=== PATIENT | male | born 1990 | race Caucasian/White ===

== ENCOUNTER 2017-07-30 14:50 | Inpatient (IN) | payer SELFPAY, OTHER ==
[2017-07-30 16:00] LABS: HEMATOCRIT 43.4 % (42.0-52.0); MEAN CORPUSCULAR HGB CONC 34.6 g/dl (32.0-36.5); MEAN CORPUSCULAR VOLUME 95.6 fl (80.0-96.0); PLATELET COUNT, AUTOMATED 364 10^3/uL (150-450); RED BLOOD COUNT 4.54 10^6/uL (4.30-6.10); RED CELL DISTRIBUTION WIDTH 13.9 % (11.5-14.5); WHITE BLOOD COUNT 10.3 10^3/uL (4.0-10.0)
[2017-07-30 16:29] LABS: AMPHETAMINES LEVEL URINE POSITIVE (NEGATIVE); BARBITURATES URINE NEGATIVE (NEGATIVE); BENZODIAZEPINES URINE NEGATIVE (NEGATIVE); CANNABINOIDS URINE POSITIVE (NEGATIVE); COCAINE METABOLITE URINE NEGATIVE (NEGATIVE); METHADONE URINE NEGATIVE (NEGATIVE); OPIATES URINE NEGATIVE (NEGATIVE); PHENCYCLIDINE URINE NEGATIVE (NEGATIVE)
[2017-07-30 16:36] LABS: ALBUMIN 4.2 GM/DL (3.2-5.2); ALBUMIN/GLOBULIN RATIO 1.11 (1.00-1.93); ALKALINE PHOSPHATASE 76 U/L (45-117); ALT/SGPT 19 U/L (12-78); ANION GAP 7 MEQ/L (8-16); AST/SGOT 15 U/L (7-37); BILIRUBIN,DIRECT 0.2 MG/DL (0.0-0.2); BILIRUBIN,TOTAL 0.7 MG/DL (0.2-1.0); BLOOD UREA NITROGEN 8 MG/DL (7-18); CARBON DIOXIDE LEVEL 28 MEQ/L (21-32); CHLORIDE LEVEL 105 MEQ/L (98-107); CREATININE FOR GFR 1.17 MG/DL (0.70-1.30); GLOMERULAR FILTRATION RATE > 60.0 (>60); GLUCOSE, FASTING 102 MG/DL (70-100); POTASSIUM SERUM 3.8 MEQ/L (3.5-5.1); SALICYLATE LEVEL 1.9 MG/DL (5.0-30.0); SODIUM LEVEL 140 MEQ/L (136-145)
[2017-07-30 16:37] LABS: ACETAMINOPHEN LEVEL < 2.0 UG/ML (10.0-30.0); ETHYL ALCOHOL (ETHANOL) < 0.003 % (0.000-0.010)
[2017-07-30] MEDS ORDERED: ACETAMINOPHEN TAB 650MG DOSE (2X325MG) PO (17:45)
[2017-07-30] MEDS ORDERED: MAALOX 30 ML SUSP *UDC PO (17:45)
[2017-07-30] MEDS ORDERED: MOM 30ML SUSPENSION UDC PO (17:45)
[2017-07-30] MEDS: NICOTINE 21MG/24HR 1 EA TRANSDERMAL TD (18:35)
[2017-07-30] MEDS: LORazepam 1 MG TAB PO (19:19)
[2017-07-30] MEDS: traZODone 50 MG TAB PO (21:52)
[2017-07-30] MEDS: OLANZapine ORAL DISINTEGRATING TAB 5MG PO (21:52)
[2017-07-31] MEDS: INFLUENZA QUADRIVALENT PF VACCINE 0.5ML SYRINGE (90686) IM (08:33)
[2017-07-31] MEDS: OLANZapine ORAL DISINTEGRATING TAB 5MG PO ×3 (08:57→19:04)
[2017-07-31] MEDS: NICOTINE 21MG/24HR 1 EA TRANSDERMAL TD (09:34)
[2017-07-31] MEDS: traZODone 50 MG TAB PO (20:56)
[2017-08-01] MEDS: NICOTINE 21MG/24HR 1 EA TRANSDERMAL TD (10:13)
[2017-08-01] MEDS: OLANZapine ORAL DISINTEGRATING TAB 5MG PO ×3 (10:40→19:49)
[2017-08-01] MEDS: traZODone 50 MG TAB PO (20:46)
[2017-08-02] MEDS: NICOTINE 21MG/24HR 1 EA TRANSDERMAL TD (08:25)
== END 2017-08-02 13:05 | disposition home or self-care (01) | DRG 754 ==
LOC: M ED 14:50 → M ED INP 17:44 → M PSY 20:22
DX: F43.21 Adjustment disorder with depressed mood (principal); Z63.5 Disruption of family by separation and divorce; F17.210 Nicotine dependence, cigarettes, uncomplicated; Z79.899 Other long term (current) drug therapy

== ENCOUNTER → 2017-08-12 | Outpatient (CLI) | payer SELFPAY | LOC: M OUTALCOH 13:10 | DX: Z13.9 Encounter for screening, unspecified (principal); F12.10 Cannabis abuse, uncomplicated; F10.10 Alcohol abuse, uncomplicated ==

== ENCOUNTER 2017-09-07 15:15 | Outpatient (RCR) | payer SELFPAY | END 2017-09-25 | LOC: M OUTALCOH 15:15 | DX: F12.10 Cannabis abuse, uncomplicated (principal); Z72.0 Tobacco use ==

== ENCOUNTER → 2019-06-20 | Outpatient (REF) | payer OTHER ==
[~2019-06-20] MED LIST: ADDE20CA3 PO; EFFE150C2 PO; HYDR-3363 PO; NICO21PAT TD; TRAZ1TAB10 PO
== END ==
LOC: M LAB REF 18:35
PROVIDERS: ATTEND Dermatology
DX: D23.5 Other benign neoplasm of skin of trunk (principal)

== ENCOUNTER → 2020-08-01 | Outpatient (CLI) | payer SELFPAY | LOC: M LABSMTC 10:54 | PROVIDERS: ATTEND Pediatrics | DX: Z20.822 Contact with and (suspected) exposure to COVID-19 (principal) ==